=== PATIENT | female | born 1990 | race Caucasian/White ===

== ENCOUNTER 2017-07-29 08:45 | Emergency (ER) | payer BC ==
[~2017-07-29] VITALS: Ht 147.3 cm; Wt 63.5 kg
[~2017-07-29 08:45] MED LIST: ANAPROX DS550 MG PO; BACTRIM DS 8001 TA1 PO; CIPRO250 MG PO; CLARITIN10 MG PO; KEFLEX500 MG PO; MACROBID100 M1 PO; NKHM PO; NORCO 325 MG-51 TAB PO; PEN-VK500 MG PO; PERIDEX 480 ML480 ML PO; Phenergan25 MG PO; TRAMADOL HCL50 MG PO; ULTRAM50 MG PO; ZITHROMAX Z PA250 MG PO
[2017-07-29 09:21] LABS: BASO # 0.1 10*3/uL (0.0-0.1); BASO % 0.5 % (0.0-1.0); EOS # 0.2 10*3/uL (0.0-0.4); EOS % 1.5 % (1.0-4.0); HEMOGLOBIN 14.9 g/dl (12.0-16.0); LYMPH % 19.8 % (27.0-41.0); MEAN CELL VOLUME 95.9 fl (81.0-99.0); MEAN CORPUSCULAR HGB 32.5 pg (27.0-31.0); MEAN CORPUSCULAR HGB CONC 33.9 g/dl (33.0-37.0); MEAN PLATELET VOLUME 9.1 fl (9.6-12.3); MONO # 0.8 10*3/uL (0.1-1.0); MONO % 7.5 % (3.0-9.0); NEUT # 7.1 10*3/uL (2.3-7.9); NEUT % 70.3 % (47.0-73.0); PLATELET COUNT AUTOMATED 345 10*3/uL (130-400); RED BLOOD COUNT 4.59 10*6/uL (4.10-5.10); RED CELL DISTRI WIDTH 12.3 % (0-14.5); WHITE BLOOD COUNT 10.1 10*3/uL (4.8-10.8)
[2017-07-29 09:31] LABS: BILIRUBIN NEGATIVE (NEGATIVE); BLOOD 3+ (NEGATIVE); CLARITY SL CLOUDY (CLEAR); COLOR YELLOW (YELLOW); GLUCOSE NEGATIVE (NEGATIVE); KETONE NEGATIVE (NEGATIVE); LEUKO ESTERASE NEGATIVE (NEGATIVE); NITRITE NEGATIVE (NEGATIVE); PH 5.5 (5.0-9.0); SPECIFIC GRAVITY 1.025 (1.005-1.030); UROBILINOGEN 0.2 E.U./dl (0.2-1.0)
[2017-07-29 09:36] LABS: ALBUMIN 4.5 gm/dl (3.1-4.5); ALKALINE PHOSPHATASE 64 U/L (45-117); BUN 13 mg/dl (7-24); CHLORIDE 105 mmol/L (98-107); CREATININE 0.87 mg/dL (0.55-1.02); LIPASE 146 U/L (73-393); POTASSIUM 3.6 mmol/L (3.5-5.1); SGOT/AST 19 IU/L (3-35); SGPT/ALT 21 U/L (12-78); SODIUM 139 mmol/L (136-145); TOTAL PROTEIN 8.1 gm/dL (6.4-8.2)
[2017-07-29 09:39] LABS: BACTERIA 1+; EPITHELIAL CELLS 31-40; MUCOUS 1+; RBC 41-50 rbc/hpf (0-2)
[2017-07-29] MEDS ORDERED: SEPTDS PO (11:48)
[2017-07-29] MEDS ORDERED: ZOFRAN4 MG PO (11:48)
[2017-07-29] MEDS ORDERED: Percocet 325 MG1 TAB PO (11:49)
[2017-07-29 12:29] VITALS: BP 116/74
== END 2017-07-29 12:15 | disposition home or self-care (01) ==
LOC: ED 08:45
PROVIDERS: Nurse Practitioner Family
DX: N20.0 Calculus of kidney (principal); R03.0 Elevated blood-pressure reading, without diagnosis of hypertension; N13.30 Unspecified hydronephrosis

== ENCOUNTER 2022-09-15 11:56 | Emergency (ER) | payer OTHER ==
[~2022-09-15] VITALS: Ht 147.3 cm; Wt 59.9 kg
[~2022-09-15 11:56] MED LIST changes: +Percocet 325 MG1 TAB PO; +SEPTDS PO; +ZOFRAN4 MG PO
[2022-09-15 12:07] VITALS: BP 137/88
[2022-09-15 12:30] LABS: BILIRUBIN Negative (Negative); BLOOD 3+ (Negative); CLARITY Cloudy (Clear); COLOR Yellow (Yellow); GLUCOSE Negative (Negative); KETONE Negative (Negative); LEUKO ESTERASE 2+ (Negative); NITRITE Negative (Negative); SPECIFIC GRAVITY 1.015 (1.001-1.030)
[2022-09-15 12:58] LABS: BASO # 0.1 10*3/uL (0.0-0.1); BASO % 0.6 % (0.0-1.0); EOS # 0.2 10*3/uL (0.0-0.4); EOS % 1.5 % (1.0-4.0); HEMATOCRIT 41.9 % (37.0-47.0); LYMPH # 1.1 10*3/uL (1.3-4.4); LYMPH % 8.4 % (27.0-41.0); MEAN CELL VOLUME 95.4 fl (81.0-99.0); MEAN CORPUSCULAR HGB 32.3 pg (27.0-31.0); MEAN CORPUSCULAR HGB CONC 33.9 g/dl (33.0-37.0); MEAN PLATELET VOLUME 9.4 fl (9.6-12.3); MONO # 0.9 10*3/uL (0.1-1.0); MONO % 6.8 % (3.0-9.0); NEUT # 10.3 10*3/uL (2.3-7.9); NEUT % 82.4 % (47.0-73.0); PLATELET COUNT AUTOMATED 352 10*3/uL (130-400); RED BLOOD COUNT 4.39 10*6/uL (4.10-5.10); RED CELL DISTRI WIDTH 13.2 % (0-14.5); WHITE BLOOD COUNT 12.5 10*3/uL (4.8-10.8)
[2022-09-15 13:15] LABS: ALKALINE PHOSPHATASE 59 U/L (46-116); BETA-HCG, QUANT < 3.0 mIU/mL (0-10); BUN 13 mg/dl (9-23); CHLORIDE 108 mmol/L (98-107); LIPASE 35 U/L (12-53); POTASSIUM 3.7 mmol/L (3.4-5.1); SGPT/ALT 15 U/L (10-49); TOTAL PROTEIN 7.3 gm/dL (6.0-8.0)
[2022-09-15 13:18] LABS: BACTERIA 1+; EPITHELIAL CELLS 31-40; RBC 21-30 rbc/hpf (0-2); WBC 16-20 wbc/hpf (0-5)
[2022-09-15] MEDS ORDERED: PHENERGAN25 M3 PO (15:26)
[2022-09-15] MEDS ORDERED: CIPRO500 MG PO (15:26)
[2022-09-15] MEDS ORDERED: FLOMAX0.4 MG PO (15:26)
[2022-09-15] MEDS ORDERED: HYDROCODONE-AC1 EAC1 PO (15:26)
[2022-09-15] MEDS ORDERED: Motrin,Rufen800 MG PO (15:26)
== END 2022-09-15 15:41 | disposition home or self-care (01) ==
LOC: ED 11:56
PROVIDERS: Emergency Medicine
DX: N20.1 Calculus of ureter (principal); N39.0 Urinary tract infection, site not specified; G43.909 Migraine, unspecified, not intractable, without status migrainosus; Z87.442 Personal history of urinary calculi; Z88.8 Allergy status to other drugs, medicaments and biological substances; Z98.890 Other specified postprocedural states

== ENCOUNTER → 2024-11-18 | Outpatient (CLI) | payer BC ==
[~2024-11-18] MED LIST changes: +CIPRO500 MG PO; +FLOMAX0.4 MG PO; +HYDROCODONE-AC1 EAC1 PO; +Motrin,Rufen800 MG PO; +PHENERGAN25 M3 PO
[2024-11-19 11:07] LABS: ANTI-DSDNA ANTIBODIES <1 IU/mL (0-9)
[2024-11-19 17:07] LABS: ANTI-SMOOTH MUSCLE ANTIBODY 43 Units (0-19)
== END | disposition home or self-care (01) ==
LOC: LAB 14:20
PROVIDERS: ATTEND Family Medicine
DX: R76.8 Other specified abnormal immunological findings in serum (principal)

== ENCOUNTER → 2024-11-26 | Outpatient (CLI) | payer BC | END | disposition home or self-care (01) | LOC: CARD 10:43 | PROVIDERS: ATTEND Family Medicine | DX: R00.0 Tachycardia, unspecified (principal); R00.2 Palpitations; R06.02 Shortness of breath ==

== ENCOUNTER → 2025-01-30 | Day surgery (SDC) | payer BC ==
[~2025-01-30] VITALS: Ht 147.3 cm; Wt 68.0 kg
[~2025-01-30] MED LIST changes: +Lidocaine Hydrochloride 5 ML VIAL IV ONE; +PANTOPRAZOLE SO40 MG PO; +PROPOFOL 200 MG/20 ML VIAL IV ONE; +SODIUM CHLORIDE 0.9% 500 ML IV ONE
[2025-01-30 08:42] VITALS: BP 143/95
[2025-01-30 08:57] VITALS: BP 142/97
[2025-01-30 09:12] VITALS: BP 136/111
== END | disposition home or self-care (01) ==
LOC: SDC 01-28 09:30
PROVIDERS: ATTEND Surgery
DX: R13.10 Dysphagia, unspecified (principal); K21.9 Gastro-esophageal reflux disease without esophagitis; F41.9 Anxiety disorder, unspecified; Z90.710 Acquired absence of both cervix and uterus; F32.A Depression, unspecified; Z98.890 Other specified postprocedural states; Z79.899 Other long term (current) drug therapy

== ENCOUNTER 2025-02-28 03:17 | Observation (INO) | payer BC ==
[2025-02-28] VITALS (7 sets, daily range): BP systolic 134–180; BP diastolic 55–117
[~2025-02-28] VITALS: Ht 147.3 cm; Wt 67.6 kg
[~2025-02-28 03:17] MED LIST changes: -Lidocaine Hydrochloride 5 ML VIAL IV ONE; -PROPOFOL 200 MG/20 ML VIAL IV ONE; -SODIUM CHLORIDE 0.9% 500 ML IV ONE
[2025-02-28] MEDS ORDERED: ESCITALOPRAM OX20 MG PO (03:38)
[2025-02-28] MEDS ORDERED: RIZATRIPTAN10 MG PO (03:38)
[2025-02-28] MEDS ORDERED: diphenhydrAMINE hydrochloride 50 MG/ML VIAL IV ONE (04:10)
[2025-02-28] MEDS ORDERED: SODIUM CHLORIDE 0.9% 1,000 ML IV ONE (04:15)
[2025-02-28 08:44] LABS: MEAN CELL VOLUME 93.3 fl (81.0-99.0); MEAN CORPUSCULAR HGB 31.5 pg (27.0-31.0); MEAN PLATELET VOLUME 9.1 fl (9.6-12.3); NUCLEATED RED BLOOD CELL 0.0 % (0.0-0.0); NUCLEATED RED BLOOD CELL 0.0 10*3/uL (0.0-0.0); PLATELET COUNT AUTOMATED 400 10*3/uL (130-400); RED CELL DISTRI WIDTH 12.7 % (0-14.5)
[2025-02-28 08:48] LABS: MANUAL DIFF REFLEX YES
[2025-02-28 08:59] LABS: ACT PARTIAL THROMBO TIME 25.3 SECONDS (20.0-32.1)
[2025-02-28 09:04] LABS: BUN 9 mg/dl (9-23)
[2025-02-28 09:10] LABS: ETHYL ALCOHOL < 3.0 mg/dl (<3)
[2025-02-28 09:17] LABS: PLATELET SUFFICIENCY NORMAL (NORMAL)
[2025-02-28 10:02] LABS: URINE AMPHETAMINES Negative (1000ng/ml); URINE BARBITURATES Negative (200ng/ml); URINE BENZODIAZEPINES Negative (200ng/ml); URINE CANNABINOIDS (THC) Negative (50ng/ml); URINE COCAINE Negative (300ng/ml); URINE METHADONE Negative (300ng/ml); URINE OPIATES Negative (300ng/ml); URINE PHENCYCLIDINE Negative (25ng/ml)
[2025-02-28 10:15] LABS: BILIRUBIN Negative (Negative); BLOOD Negative (Negative); CLARITY Clear (Clear); COLOR Yellow (Yellow); KETONE Negative (Negative); LEUKO ESTERASE Negative (Negative); NITRITE Negative (Negative); PH 7.0 (4.5-8.0); SPECIFIC GRAVITY 1.010 (1.001-1.030); UROBILINOGEN 0.2 E.U./dl (0.0-1.0)
[2025-02-28 10:37] LABS: EPITHELIAL CELLS 0-2
[2025-02-28] MEDS ORDERED: Ondansetron Hydrochloride 4 MG/2 ML VIAL IV PRN (11:45)
[2025-02-28] MEDS ORDERED: ACETAMINOPHEN 325 MG TAB PO PRN (11:45)
[2025-02-28] MEDS ORDERED: TEMAZEPAM 15 MG CAP PO PRN (11:45)
[2025-02-28] MEDS ORDERED: BISACODYL 5 MG TAB PO PRN (11:45)
[2025-02-28] MEDS ORDERED: Acetaminophen/Hydrocodone 5 MG/325 MG TABLET PO PRN (11:45)
[2025-02-28] MEDS ORDERED: ESCITALOPRAM OXALATE 20 MG TAB PO SCH (15:35)
[2025-03-01] VITALS: BP 127/75
[2025-03-01 06:28] LABS: BUN 18 mg/dl (9-23); FREE T4 1.28 ng/dl (0.89-1.76); LDL CHOLESTEROL 83 mg/dL (9-159)
[2025-03-01 06:35] LABS: BASO # 0.0 10*3/uL (0.0-0.1); BASO % 0.1 % (0.0-1.0); EOS # 0.0 10*3/uL (0.0-0.4); EOS % 0.1 % (1.0-4.0); MEAN CELL VOLUME 94.2 fl (81.0-99.0); MEAN CORPUSCULAR HGB 31.8 pg (27.0-31.0); MEAN PLATELET VOLUME 10.0 fl (9.6-12.3); MONO # 1.4 10*3/uL (0.1-1.0); MONO % 10.1 % (3.0-9.0); NEUT # 10.1 10*3/uL (2.3-7.9); NEUT % 73.5 % (47.0-73.0); NUCLEATED RED BLOOD CELL 0.0 % (0.0-0.0); NUCLEATED RED BLOOD CELL 0.0 10*3/uL (0.0-0.0); PLATELET COUNT AUTOMATED 412 10*3/uL (130-400); RED CELL DISTRI WIDTH 12.9 % (0-14.5)
[2025-03-01 07:20] LABS: VITAMIN D, 25-HYDROXY 43.6 ng/mL (30-100)
[2025-03-01 08:00] VITALS: BP 129/92
[2025-03-01 12:00] VITALS: BP 138/99
[2025-03-01 13:09] VITALS: BP 136/90
[2025-03-01 16:00] VITALS: BP 146/94
[2025-03-01 20:00] VITALS: BP 142/90
[2025-03-02] VITALS: BP 140/98
[2025-03-02 08:00] VITALS: BP 140/98
[2025-03-02] MEDS ORDERED: LISINOPRIL 5 MG TAB PO SCH (10:00)
[2025-03-02 12:00] VITALS: BP 156/104
[2025-03-02 12:34] VITALS: BP 138/100
[2025-03-02] MEDS ORDERED: LISINOPRIL5 MG PO (12:53)
[2025-03-02] MEDS ORDERED: HYDR12.5C PO (12:53)
== END 2025-03-02 13:40 | disposition home or self-care (01) ==
LOC: ED 03:17 → EDHOLD 11:12 → 5E 11:12 → EDHOLD 11:12 → 5E 11:12
PROVIDERS: Internal Medicine; ADMIT Student in an Organized Health Care Education/Training Program; ATTEND Student in an Organized Health Care Education/Training Program
DX: I16.0 Hypertensive urgency (principal); R11.10 Vomiting, unspecified; F32.9 Major depressive disorder, single episode, unspecified; F41.1 Generalized anxiety disorder; D72.829 Elevated white blood cell count, unspecified; Z79.899 Other long term (current) drug therapy